=== PATIENT | female | born 1970 | race Caucasian/White ===

== ENCOUNTER 2024-05-02 10:02 | Emergency (ER) | payer MEDICAID ==
[~2024-05-02] VITALS: Ht 167.6 cm; Wt 64.0 kg
[~2024-05-02 10:02] MED LIST: GLIP10TA3; GUAI100L74; METF-414; SITA100T11
[2024-05-02 10:06] VITALS: O2SAT 99
[2024-05-02] MEDS: ACETAMINOPHEN 325MG TABLET PO SCH (12:00)
[2024-05-02] MEDS: ACETAMINOPHEN 325MG TABLET PO ONE (12:00)
[2024-05-02] MEDS: IBUPROFEN 400MG TABLET PO SCH (12:00)
[2024-05-02] MEDS: IBUPROFEN 400MG TABLET PO ONE (12:00)
[2024-05-02] MEDS ORDERED: IBUP-2028 MT (12:13)
[2024-05-02 12:37] VITALS: BP 144/84; PULSE 88; RESP 20; TEMP 37.00296; O2SAT 99
== END 2024-05-02 13:15 | disposition home or self-care (01) ==
LOC: ER 10:02
DX: M54.2 Cervicalgia (principal); N18.6 End stage renal disease; E11.22 Type 2 diabetes mellitus with diabetic chronic kidney disease; Z99.2 Dependence on renal dialysis; Z98.890 Other specified postprocedural states
CPT/HCPCS: 71045; 73090; 93005; 99284